=== PATIENT | male | born 1950 | race Caucasian/White ===

== ENCOUNTER 2018-11-14 03:44 | Emergency (ER) | payer BC, MEDICARE ==
[2018-11-14] MEDS ORDERED: Sodium Chloride 0.9% 500 ML 500 ML IV ONE (03:45)
[2018-11-14] MEDS ORDERED: EPINEPHRINE ABBOJECT 1 MG IV ONE (03:45)
--- NOTE | 2018-11-14 04:17 | ERPHSYRPT ---
- History of Present Illness Time Seen by Provider: 11/14/18 03:45 Source: EMS, other (spouse) Exam Limitations: clinical condition Physician History: According to EMS and his spouse patient returned from work at 02:30 AM, he was lying down on a bed, took a deep breath, and became unresponsive, did not breath. She denied any complaints, or injury. They called 911 at 03:00 AM, there was no bystander CPR according EMS, they arrived at 03:25 AM, started CPR , inserted IO to right tibia, and intubated with a Combitube. They attempted to defibrillate few times, but pt remained in Vfib or PEA. They never regained the pulse, he was given 3x 1mg Epinephrine, 100 mg Lidocaine and 1 amp sodium bicarb. via IO. Pt arrived here at 03:45 AM, in asystole, CPR in progress, no pulse felt. Timing/Duration: hour(s) (1) Activities at Onset: rest Severity of Pain-Max: none Nitro Today/Relief: no nitro taken today Aspirin Treatment Today: no aspirin today Associated Symptoms: other (unknown) Prior Chest Pain/Cardiac Workup: no prior chest pain - Review of Systems All Other Systems: Unable due to condition - Physical Exam General Appearance: severe distress Eye Exam: other (5 mm, equal, nonreacting pupils) Ears, Nose, Throat Exam: other (combitube in place) Neck Exam: normal inspection, No JVD Respiratory Exam: other (no spont. respiration) Cardiovascular Exam: other (no pulse felt) Gastrointestinal/Abdomen Exam: other (distended) Male Genitalia Exam: normal genitalia Back Exam: normal inspection Extremity Exam: other (right tibia IO) Neurologic Exam: other (unresponsive) Skin Exam: normal color SpO2 Interpretation: O2 applied Procedures - Intubation Intubation Indications: cardiac arrest Intubation Method: orotracheal Tube Size (cm): 8.0 C-Spine: maintained Endotracheal Tube Confirmation: bilateral breath sounds, positive end tidal CO2 , good rise & fall of chest Intubation Complications: no complications Performed By: ED Physician Post Intubation Xray: No Progress/X-ray Impression: 11/14/18 04:20 First attempt was unsuccessful, end tidal CO2 was 0. Reattempted intubation with another size 8 tube successfully, - Additional Procedures Additional Procedures: CPR (Pt was given 4x 1 mg Epinephrine via IO, no pulse felt, he remained unresponsive and pronounced at 04:03 AM. His family was informed.) - Course Nursing assessment & vital signs reviewed: Yes - Progress Progress: unchanged Air Movement: poor Progress Note: 11/14/18 04:26 see under procedures: intubation and CPR. Blood Culture(s) Obtained: No Antibiotics given: No Discussed with : Marco A Counseled pt/family regarding: diagnosis - Departure Departure Disposition: Clinical Impression: Cardiac arrest Condition: Critical Care Time: Yes Critical Care Time(excluding separately billable procedures): 30-74 minutes Referrals: KEELEY WILLOUGHBY [Primary Care Provider] -
[2018-11-14 05:37] VITALS: PULSE 0
== END 2018-11-14 05:20 | disposition expired ==
LOC: MERGE 03:44 → EDBD 03:44 → ED 03:44
DX: I46.9 Cardiac arrest, cause unspecified (principal)
CPT/HCPCS: 31500; 94799; 96360; 96374; 96376; 99283; 99291; J0171